=== PATIENT | male | born 1970 | race American Indian/Alaskan Native ===

== ENCOUNTER 2022-03-03 15:57 | Outpatient (CLI) | payer OTHER ==
--- NOTE | 2022-03-04 08:04 | XRay Report ---
LUMBOSACRAL SPINE WITH OBLIQUES 5 VIEWS INDICATION / CLINICAL INFORMATION: LOWER BACK PAIN /RADICULOPATHY M54.16. COMPARISON: None available. FINDINGS: BONES / JOINT(S): There is bilateral spondylolysis at L5 with grade 1 anterolisthesis of L5 on S1. Th ere is moderate associated degenerative disc disease at L5-S1 with a vacuum disc present. There is mo derate anterior and posterior spurring. There is also mild degenerative disc disease at L4-5 with mil d retrolisthesis of L4 on L5. The other disc spaces are unremarkable. The pedicles are intact and the SI joints are normal. There is no evidence of acute fracture or destructive lesion. SOFT TISSUES: No significant abnormality. ADDITIONAL FINDINGS: None. IMPRESSION: Bilateral spondylolysis at L5 with associated grade 1 spondylolisthesis and moderate spon dylosis. Mild degenerative disc disease L4-5. Signer Name: Travis Jordan MD Signed: 03/04/2022 7:59 AM Workstation Name: [id number]
--- NOTE | 2022-03-04 08:05 | XRay Report ---
SACRUM AND COCCYX 4 VIEWS INDICATION / CLINICAL INFORMATION: LOWER BACK PAIN /RADICULOPATHY M54.16. COMPARISON: None available. FINDINGS: BONES / JOINT(S): The SI joints are normal. The sacral foramina are intact. I see no evidence of frac ture, subluxation or destructive lesion involving the sacrum or coccyx. SOFT TISSUES: No significant abnormality. ADDITIONAL FINDINGS: None. IMPRESSION: Negative study. Signer Name: Travis Jordan MD Signed: 03/04/2022 8:01 AM Workstation Name: [id number]
== END 2022-03-03 15:58 | disposition home or self-care (01) ==
LOC: XRAY 15:57
PROVIDERS: ATTEND Internal Medicine
DX: M51.17 Intervertebral disc disorders with radiculopathy, lumbosacral region (principal); M43.16 Spondylolisthesis, lumbar region
CPT/HCPCS: 72110; 72220